=== PATIENT | female | born 1980 | race Caucasian/White ===

== ENCOUNTER → 2023-12-02 11:26 | Outpatient (REF) | payer MEDICARE, OTHER, SELFPAY ==
[2023-12-02 15:08] LABS: % Basophils 0.3 % (0-2); % Eosinophils 0.8 % (0-6); % Immature Granulocytes 0.3 % (0-0.5); % Lymphocytes 41.3 % (20.5-51.1); % Monocytes 7.7 % (1.7-9.3); % Neutrophils 49.6 % (42.2-75.2); Absolute Eosinophils 0.1 10^3/uL (0-0.7); Absolute Monocytes 0.6 10^3/uL (0.1-0.6); Absolute Neutrophils 3.6 10^3/uL (1.4-6.5); Hematocrit 44.7 % (37.0-47.0); Hemoglobin 15.6 g/dL (12.0-16.0); Mean Corp Hgb Conc. 34.9 g/dL (33.0-37.0); Mean Corpuscular Hgb 36.1 pg (27.0-31.0); Mean Corpuscular Volume 103.5 fL (81.0-99.0); Mean Platelet Volume 10.5 fL (7.4-10.4); Nucleated Red Blood Cells % 0 %; Platelet Count 347 10^3/uL (130-400); Red Blood Cell Count 4.32 10^6/uL (4.20-5.40); Red Cell Dist. Width 12.2 % (11.5-14.5); White Blood Cell Count 7.2 10^3/uL (4.8-10.8)
[2023-12-02 15:16] LABS: ALT (SGPT) 46 U/L (0-35); AST (SGOT) 31 U/L (14-36); Albumin 4.6 g/dl (3.5-5.0); Alkaline Phosphatase 59 U/L (38-126); Blood Urea Nitrogen 14 mg/dl (7-17); Carbon Dioxide 24 mmol/L (22-30); Chloride 100 mmol/L (98-107); Glucose 117 mg/dl (70-99); HDL Cholesterol 60 mg/dl; LDL Cholesterol, Calculated 123 mg/dl; Sodium 136 mmol/L (135-145); Total Bilirubin 1.8 mg/dl (0.2-1.3); Total Cholesterol 223 mg/dl (50-199); Total Protein 7.6 g/dl (6.3-8.2); Triglyceride 203 mg/dl (10-149); Very Low Density Lipoprotein 40 mg/dl (0-30); eGFR > 60.00
[2023-12-02 15:21] LABS: Potassium 4.4 mmol/L (3.5-5.1)
[2023-12-02 15:42] LABS: TSH Reflex To Free T4 5.43 uIU/ml (0.47-4.68)
[2023-12-02 16:11] LABS: Free T4 0.89 ng/dl (0.78-2.19)
[2023-12-03 10:42] LABS: Intact PTH 65.7 pg/ml (13.6-85.8)
== END ==
LOC: HWLAB 11:26
PROVIDERS: ATTENDING PHYSICIAN Student in an Organized Health Care Education/Training Program
DX: Z00.00 Encounter for general adult medical examination without abnormal findings (principal); E21.3 Hyperparathyroidism, unspecified; R73.02 Impaired glucose tolerance (oral); R74.01 Elevation of levels of liver transaminase levels; E78.00 Pure hypercholesterolemia, unspecified
CPT/HCPCS: 36415; 80053; 80061; 83036; 83970; 84439; 84443; 85025

== ENCOUNTER → 2024-09-28 09:54 | Outpatient (REF) | payer MEDICARE, OTHER, SELFPAY ==
[2024-09-28 14:49] LABS: Urine Albumin 1+ (Neg - Trace); Urine Bilirubin Negative (Negative); Urine Character Slightly Cloudy (Clear); Urine Color Yellow; Urine Glucose Negative (Negative); Urine Ketone Negative (Negative); Urine Leukocyte 1+ (Negative); Urine Nitrite Negative (Negative); Urine Occult Blood Negative (Negative); Urine Specific Gravity 1.025 (<1.030); Urine Urobilinogen Negative (Neg - 1+)
[2024-09-28 14:56] LABS: % Basophils 0.4 % (0-2); % Eosinophils 0.8 % (0-6); % Immature Granulocytes 0.2 % (0-0.5); % Lymphocytes 41.2 % (20.5-51.1); % Monocytes 7.9 % (1.7-9.3); % Neutrophils 49.5 % (42.2-75.2); Absolute Lymphocytes 2.2 10^3/uL (1.2-3.4); Absolute Monocytes 0.4 10^3/uL (0.1-0.6); Absolute Neutrophils 2.6 10^3/uL (1.4-6.5); Hematocrit 44.2 % (37.0-47.0); Hemoglobin 15.6 g/dL (12.0-16.0); Mean Corp Hgb Conc. 35.3 g/dL (33.0-37.0); Mean Corpuscular Hgb 35.7 pg (27.0-31.0); Mean Corpuscular Volume 101.1 fL (81.0-99.0); Mean Platelet Volume 10.6 fL (7.4-10.4); Nucleated Red Blood Cells % 0 %; Platelet Count 336 10^3/uL (130-400); Red Blood Cell Count 4.37 10^6/uL (4.20-5.40); Red Cell Dist. Width 11.9 % (11.5-14.5); White Blood Cell Count 5.3 10^3/uL (4.8-10.8)
[2024-09-28 14:58] LABS: Urine Bacteria Many (Negative); Urine Red Blood Cell 0-2 /HPF (0-2)
[2024-09-28 15:08] LABS: ALT (SGPT) 63 U/L (0-35); AST (SGOT) 35 U/L (14-36); Albumin 4.9 g/dl (3.5-5.0); Alkaline Phosphatase 58 U/L (38-126); Blood Urea Nitrogen 14 mg/dl (7-17); Calcium 9.7 mg/dl (8.4-10.2); Carbon Dioxide 20 mmol/L (22-30); Chloride 105 mmol/L (98-107); Glucose 138 mg/dl (70-99); HDL Cholesterol 44 mg/dl; LDL Cholesterol, Calculated 98 mg/dl; Potassium 4.3 mmol/L (3.5-5.1); Sodium 138 mmol/L (135-145); Total Bilirubin 1.5 mg/dl (0.2-1.3); Total Cholesterol 167 mg/dl (50-199); Total Protein 7.3 g/dl (6.3-8.2); Triglyceride 127 mg/dl (10-149); Very Low Density Lipoprotein 25 mg/dl (0-30); eGFR > 60.00
[2024-09-28 15:14] LABS: Intact PTH 67.9 pg/ml (13.6-85.8)
[2024-09-28 15:33] LABS: TSH Reflex To Free T4 3.18 uIU/ml (0.47-4.68)
[2024-09-29 09:27] LABS: Glycohemoglobin (HgbA1c) 6.3 % (4.0-5.6)
== END ==
LOC: HWLAB 09:54
PROVIDERS: ATTENDING PHYSICIAN Student in an Organized Health Care Education/Training Program
DX: R73.02 Impaired glucose tolerance (oral) (principal); R35.89 Other polyuria; I10 Essential (primary) hypertension; R74.01 Elevation of levels of liver transaminase levels; R17 Unspecified jaundice; E21.3 Hyperparathyroidism, unspecified; E03.9 Hypothyroidism, unspecified; E78.00 Pure hypercholesterolemia, unspecified
CPT/HCPCS: 36415; 80053; 80061; 81003; 81015; 83036; 83970; 84443; 85025; 87086

== ENCOUNTER → 2025-06-23 09:55 | Outpatient (REF) | payer MEDICARE, OTHER, SELFPAY ==
[2025-06-23 13:38] LABS: Glycohemoglobin (HgbA1c) 6.7 % (4.0-5.9)
== END ==
LOC: HWLAB 09:55
PROVIDERS: ATTENDING PHYSICIAN Internal Medicine
DX: R73.01 Impaired fasting glucose (principal)
CPT/HCPCS: 36415; 83036